=== PATIENT | female | born 1995 | race Asian ===

== ENCOUNTER 2018-07-25 21:05 | Emergency (ER) | payer OTHER ==
[~2018-07-25] VITALS: Ht 154.9 cm; Wt 54.5 kg
[2018-07-25 21:11] VITALS: BP 133/60; TEMP 97.7
[2018-07-25] MEDS ORDERED: CEPHALEXIN500 M1 PO (22:22)
[2018-07-25 22:40] VITALS: PULSE 86
== END 2018-07-25 22:40 | disposition home or self-care (01) ==
LOC: COL.ER 21:05
DX: N61.0 Mastitis without abscess (principal)

== ENCOUNTER 2020-10-22 22:43 | Emergency (ER) | payer OTHER ==
[~2020-10-22] VITALS: Ht 154.9 cm; Wt 64.5 kg
[~2020-10-22 22:43] MED LIST: CEPHALEXIN500 M1 PO
[2020-10-22 22:48] VITALS: TEMP 98.2
[2020-10-22] MEDS ORDERED: PREDNISONE20 MG PO (23:06)
[2020-10-22 23:55] VITALS: BP 130/86; PULSE 79
== END 2020-10-22 23:56 | disposition home or self-care (01) ==
LOC: COL.ER 22:43
DX: O99.711 Diseases of the skin and subcutaneous tissue complicating pregnancy, first trimester (principal); T78.40XA Allergy, unspecified, initial encounter; Z3A.01 Less than 8 weeks gestation of pregnancy
CPT/HCPCS: J1200; J2930; J7030

== ENCOUNTER 2021-03-02 22:41 | Outpatient (CLI) | payer OTHER ==
[~2021-03-02] VITALS: Ht 154.9 cm; Wt 66.4 kg
[2021-03-02 23:30] VITALS: BP 124/56; PULSE 96; TEMP 98.7
--- NOTE | 2021-03-02 23:33 | NUR ---
25 YO AT 23 WEEKS GESTATION TO LR3 WITH C/O BURNING, FREQUENCY AND BLOOD IN URINE, LOWER ABD PAIN AND BACK PAIN. PT REPORTS THIS HAS BEEN GOING ON SINCE ABOUT MIDNIGHT LAST NIGHT, SHE CALLED HER PROVIDER'S OFFICE TODAY AND THEY COULD NOT SEE HER FOR A FEW WEEKS, SO SHE REPORTED TO THE ER.
[2021-03-02 23:41] LABS: COLLECTION METHOD CLEAN CATCH
[2021-03-03 00:04] LABS: MUCOUS Present (NOT PRESENT); PH 6 (5-8); URINE APPEARANCE Hazy (CLEAR/HAZY); URINE BACTERIA Occasional /hpf (NONE SEEN); URINE BILIRUBIN Negative (NEGATIVE); URINE BLOOD 2+ (NEGATIVE); URINE COLOR Amber (YELLOW); URINE GLUCOSE 2+ (NEGATIVE); URINE KETONE Trace (NEGATIVE); URINE LEUKOCYTE ESTERASE Negative (NEGATIVE); URINE NITRATE Positive (NEGATIVE); URINE PROTEIN(semi-quant) 2+ (NEGATIVE); URINE RBC >50 /hpf (0-2); URINE UROBILINOGEN >=4.0 (NEGATIVE); URINE WBC >50 /hpf (0-2)
--- NOTE | 2021-03-03 01:22 | NUR ---
TYLENOL 100MG GIVEN PO, DISCHARGE INSTRUCTIONS REVIEWED, PT VERBALIZES UNDERSTANDING
--- NOTE | 2021-03-03 01:23 | NUR ---
DISMISSED AMBULATORY IN STABLE CONDITION
== END 2021-03-03 00:58 | disposition home or self-care (01) ==
LOC: LDRO 22:41 → LDR 22:51 → LDRO 03-03 00:58
PROVIDERS: Obstetrics & Gynecology
DX: O26.892 Other specified pregnancy related conditions, second trimester (principal); R31.9 Hematuria, unspecified; R35.0 Frequency of micturition; Z3A.23 23 weeks gestation of pregnancy
CPT/HCPCS: OP

== ENCOUNTER → 2021-03-02 | Emergency (ER) | payer OTHER ==
[~2021-03-02] MED LIST changes: +PREDNISONE20 MG PO
== END ==
LOC: COL.ER 22:15
DX: R69 Illness, unspecified (principal)